=== PATIENT | female | born 1975 | race Caucasian/White ===

== ENCOUNTER → 2018-07-21 | Outpatient (REF) | payer OTHER | LOC: M LAB REF 17:28 | DX: Z34.82 Encounter for supervision of other normal pregnancy, second trimester (principal) ==

== ENCOUNTER → 2018-08-09 | Outpatient (CLI) | payer OTHER | LOC: M RAD 09:23 | DX: Z34.82 Encounter for supervision of other normal pregnancy, second trimester (principal); Z36.89 Encounter for other specified antenatal screening; Z3A.19 19 weeks gestation of pregnancy | CPT/HCPCS: 76811 ==

== ENCOUNTER → 2018-09-15 | Outpatient (CLI) | payer OTHER | LOC: M RAD 16:12 | DX: O09.512 Supervision of elderly primigravida, second trimester (principal); Z3A.25 25 weeks gestation of pregnancy | CPT/HCPCS: 76816 ==

== ENCOUNTER → 2018-09-30 | Outpatient (CLI) | payer OTHER ==
[2018-09-30 08:26] LABS: HEMATOCRIT 36.3 % (36.0-47.0); MEAN CORPUSCULAR HEMOGLOBIN 30.4 pg (27.0-33.0); MEAN CORPUSCULAR HGB CONC 33.1 g/dl (32.0-36.5); MEAN CORPUSCULAR VOLUME 91.9 fl (80.0-96.0); PLATELET COUNT, AUTOMATED 164 10^3/uL (150-450); RED BLOOD COUNT 3.95 10^6/uL (4.00-5.40); WHITE BLOOD COUNT 8.9 10^3/uL (4.0-10.0)
[2018-09-30 08:54] LABS: FREE T4 1.04 NG/DL (0.76-1.46); THYROID STIMULATING HORMONE 4.05 uIU/ML (0.358-3.740)
[2018-09-30 09:35] LABS: HEMOGLOBIN A1c 5.2 %
== END ==
LOC: M LAB 07:52
PROVIDERS: ATTEND Obstetrics & Gynecology
DX: O24.312 Unspecified pre-existing diabetes mellitus in pregnancy, second trimester (principal); Z3A.00 Weeks of gestation of pregnancy not specified
CPT/HCPCS: 36415; 83036; 84439; 84443; 85027; 86850; 86900; 86901; J2790

== ENCOUNTER → 2018-12-01 | Outpatient (REF) | payer OTHER | LOC: M LAB REF 13:25 | PROVIDERS: ATTEND Specialist | DX: O09.513 Supervision of elderly primigravida, third trimester (principal); Z3A.00 Weeks of gestation of pregnancy not specified ==

== ENCOUNTER 2018-12-13 11:27 | Outpatient (CLI) | payer BC, OTHER ==
[~2018-12-13] VITALS: Ht 157.5 cm; Wt 106.0 kg
[2018-12-13] MEDS ORDERED: LABE20TAB PO (11:53)
[2018-12-13] MEDS ORDERED: LEVO200T4 PO (11:53)
[2018-12-13] MEDS ORDERED: PRENTAB9 PO (11:53)
[2018-12-13] MEDS ORDERED: ASPI81TA85 PO (11:53)
[2018-12-13 11:57] VITALS: BP 131/80
--- NOTE | 2018-12-13 22:16 | IPNPDOC ---
Text Note Date of Service The patient was seen on 12/13/18. NOTE Patient presents for an ECV due to breech presentation. She is 37+ weeks gestation with an JASON of 01/01/19 based off of IVF dates. An ultrasound was done when patient arrived to room and she was found to have a baby in cephalic presentation. Category I NST obtained. VS were stable. Patient discharged to home with and is to follow-up this week or next week for her antepartum visits. Dr. Morse was present and did ultrasound at the bedside. VS,Fishbone, I+O VS, Fishbone, I+O Vital Signs Date Time Temp Pulse Resp B/P (MAP) Pulse Ox O2 Delivery O2 Flow Rate FiO2 12/13/18 11:57 99.0 97 18 131/80 (97) BENSON POLANCO CNM Dec 13, 2018 22:15
== END 2018-12-13 12:21 | disposition home or self-care (01) ==
LOC: M LDO 11:27
PROVIDERS: ATTEND Advanced Practice Midwife
DX: O26.893 Other specified pregnancy related conditions, third trimester (principal); Z3A.37 37 weeks gestation of pregnancy
CPT/HCPCS: 59025; 59412; G0378; G0463

== ENCOUNTER 2018-12-19 08:49 | Inpatient (IN) | payer BC, OTHER ==
[2018-12-19] VITALS (10 sets, daily range): BP systolic 138–176; BP diastolic 83–95
[~2018-12-19] VITALS: Ht 157.5 cm; Wt 106.7 kg
[~2018-12-19 08:49] MED LIST: ASPI81TA85 PO; LABE20TAB PO; LEVO200T4 PO; PRENTAB9 PO
[2018-12-19] MEDS ORDERED: FOLI400T PO (09:06)
[2018-12-19] MEDS: miSOPROStol 50 MCG 1/2 TAB (S0191) SL SCH ×3 (10:07→18:27)
[2018-12-19 10:29] LABS: HEMOGLOBIN 13.5 g/dl (12.0-15.5); MEAN CORPUSCULAR HEMOGLOBIN 30.5 pg (27.0-33.0); MEAN CORPUSCULAR HGB CONC 33.8 g/dl (32.0-36.5); MEAN CORPUSCULAR VOLUME 90.5 fl (80.0-96.0); PLATELET COUNT, AUTOMATED 144 10^3/uL (150-450); RED BLOOD COUNT 4.42 10^6/uL (4.00-5.40); WHITE BLOOD COUNT 9.3 10^3/uL (4.0-10.0)
--- NOTE | 2018-12-19 10:58 | HPE ---
DATE OF ADMISSION: 12/19/2018 A 43-year-old 1, para 0 female at 38-1/7 weeks gestation by last menstrual period (LMP) consistent with a 6-week ultrasound, estimated date of confinement (EDC) of 01/01/2019, presents for labor induction. The indication for induction less than 39 weeks is type 2 diabetes requiring insulin. She denies contractions or vaginal bleeding. There is good movement. COURSE: The patient initiated care at 13 weeks gestation on 06/29/2018. She conceived through reproductive assistance from [employer] She did not check glucose levels regularly in early and once she started checking, revealed poor control so she was started on insulin 17-18 weeks gestation. Initial hemoglobin A1c was 5.2. Baby had been breech at one point; however, spontaneously inverted when she showed up for attempted external cephalic version. MEDICAL HISTORY: 1. Polycystic ovary syndrome (PCOS). 2. Diabetes. 3. Hypertension. 4. Hypothyroidism. SURGICAL HISTORY: 1. [place] teeth removal. 2. Carpal tunnel syndrome surgery. ALLERGIES: SULFA. SOCIAL HISTORY: The patient is . She lives in [place]. She denies cigarettes, alcohol, or drug use. FAMILY HISTORY: Noncontributory. PHYSICAL EXAMINATION: Blood pressure 132/80, weight 239, pulse 84. She is in no apparent distress. Head and neck exam: Normal. Lungs: Clear. Heart: Regular rate and rhythm. Abdomen: Nontender, gravid. heart tones: Category 1. Sterile Vaginal Exam: Fingertip, 50%, -2, posterior vertex, moderate. Contractions: Irregular. Extremities: Nontender. LABS: Blood type A negative, Rubella immune, RPR nonreactive. Hepatitis B and C negative. HIV negative. GBS negative 12/01/2018. ASSESSMENT: A 43-year-old 1 at 38-1/7 weeks gestation with type 2 diabetes, on insulin, presents for labor induction. The patient was admitted on 12/19/2018. Risks of induction were discussed.
[2018-12-19 16:41] LABS: GLUCOSE,RANDOM 122 MG/DL (LESS THAN 200)
[2018-12-19] MEDS ORDERED: LABETALOL 200 MG TAB PO SCH (21:00)
[2018-12-19] MEDS: LABETALOL 200 MG TAB PO SCH (21:36)
[2018-12-19] MEDS: LR 1,000 ML IV SCH (21:54)
--- NOTE | 2018-12-19 21:57 | NUR ---
Progress note S: Feels cramps only O: BP139/92 NAD Abd: NT, gravid FHt: Cat. I toco: irreg cx: 1 cm/50%/-3 A/P 43 yo at 38 1/7 weeks with type II diabetes on insulin, labor induction Pt received 3 doses Misoprostol Intracervical Cook's Cath placed Plan to start Pitocin Pt given evening dose of Labetalol Lencho Morse MD
[2018-12-19] MEDS ORDERED: OXYTOCIN DRIP 30 UNITS in APPROPRIATE DILUENT 1 EA IV SCH (22:00)
[2018-12-20] VITALS (60 sets, daily range): BP systolic 112–166; BP diastolic 56–91
[2018-12-20] MEDS ORDERED: FENTANYL 2MCG/ML ROPIVACAINE 0.2% IN 0.9% NACL 100ML IVBAG As Ordered ONE (03:40)
[2018-12-20] MEDS ORDERED: NALOXONE INJ 0.4 MG/1 ML VIAL (J2310) IV PRN (04:55)
[2018-12-20] MEDS ORDERED: EPIDURAL/PCA KEYS XX PRN (04:55)
[2018-12-20] MEDS ORDERED: EPIDURAL COMMENT XX SCH (04:55)
[2018-12-20] MEDS ORDERED: ePHEDrine SULFATE 25 MG/5 ML(5MG/ML) SYRINGE IV PRN (04:55)
[2018-12-20] MEDS ORDERED: REFRIGERATOR IV KEYS XX PRN (04:55)
[2018-12-20] MEDS ORDERED: LACTATED RINGER'S 1000 ML IV PRN (04:55)
[2018-12-20] MEDS ORDERED: diphenhydrAMINE INJ 50MG/ML VIAL (J1200) IV PRN (04:55)
[2018-12-20] MEDS: FENTANYL/ROPIVACAINE/NACL BAG 100 ML EPIDURAL SCH ×2 (04:55→13:20)
[2018-12-20] MEDS ORDERED: ONDANSETRON 4MG/2ML VIAL (J2405) IV PRN ×3 (04:55→21:15)
[2018-12-20] MEDS: LR 1,000 ML IV SCH ×4 (05:54→21:26)
[2018-12-20] MEDS: LABETALOL 200 MG TAB PO SCH ×2 (08:10→21:00)
--- NOTE | 2018-12-20 14:21 | IPNPDOC ---
Obstetrical Progress Note Date of Service Dec 20, 2018 Subjective Patient reports feeling some cramping on her left side. Objective Vital Signs Date Time Temp Pulse Resp B/P (MAP) Pulse Ox O2 Delivery O2 Flow Rate FiO2 12/20/18 10:30 98.4 86 18 134/66 (88) Assessment Heart Rate (FHR): 120 Variability: Moderate Accelerations: Positive Decelerations: None Heart Rate Tracing: Category I Tocometer Contractions: Yes Frequency: regular Sterile Vaginal Examination Dilation: 4 cm Effacement (%): 90% Station: -2 Cervical Consistency: Medium Cervical Position: Anterior Postion/Presentation: Cephalic presentation Assessment and Plan Age: 43 : 3 Term: 0 Pre-term: 0 Abortions: 2 Livin Weeks & Days 38.2 Status: Reassuring Group B Streptococcus: Negative Additional Comments Pitocin is at 18 mu/min. IUPC shows adequate contraction pattern with adequate MVUs. Patient educated about anesthesia button for epidural bolus. She reports sweating and feeling warm. Temperate is 98.5 orally and blood sugar is 82. BENSON POLANCO CNM Dec 20, 2018 14:20
--- NOTE | 2018-12-20 17:47 | IPNPDOC ---
Obstetrical Progress Note Date of Service Dec 20, 2018 Subjective Patient reports she is comfortable with her epidural. She denies feeling any pressure. Objective Vital Signs Date Time Temp Pulse Resp B/P (MAP) Pulse Ox O2 Delivery O2 Flow Rate FiO2 12/20/18 10:30 98.4 86 18 134/66 (88) Assessment Heart Rate (FHR): 120 Variability: Moderate Accelerations: Positive Decelerations: None Heart Rate Tracing: Category I Tocometer Contractions: Yes Frequency: regular, every 2-2 min. Sterile Vaginal Examination Dilation: 4 cm Effacement (%): 90% Station: -2 Cervical Consistency: Soft Cervical Position: Anterior Postion/Presentation: Cephalic presentation Assessment and Plan Age: 43 : 3 Term: 0 Pre-term: 0 Abortions: 2 Livin Weeks & Days 38.2 Status: Reassuring Group B Streptococcus: Negative Anticipate: Section Additional Comments Pitocin at 18 mu/min. Reviewed with patient that her cervix hasn't changed more than half a cm in 8 hours. Reviewed recommendation of with patient due to failure to progress. Dr. Alicea notified of minimal change in 8 hours. BENSON POLANCO CNM Dec 20, 2018 17:47
[2018-12-20] MEDS ORDERED: BICITRA 30ML SOLN UDC PO ONE (18:30)
[2018-12-20 18:48] LABS: HEMOGLOBIN 13.2 g/dl (12.0-15.5); MEAN CORPUSCULAR HEMOGLOBIN 30.8 pg (27.0-33.0); MEAN CORPUSCULAR HGB CONC 33.8 g/dl (32.0-36.5); MEAN CORPUSCULAR VOLUME 90.9 fl (80.0-96.0); PLATELET COUNT, AUTOMATED 146 10^3/uL (150-450); RED BLOOD COUNT 4.29 10^6/uL (4.00-5.40); WHITE BLOOD COUNT 13.3 10^3/uL (4.0-10.0)
[2018-12-20] MEDS ORDERED: KETOROLAC 60 MG/2 ML VIAL (J1885) As Ordered ONE (18:56)
[2018-12-20] MEDS ORDERED: OXYTOCIN INJ 10 UNITS/ML VIAL (J2590) As Ordered ONE (18:56)
[2018-12-20] MEDS ORDERED: ONDANSETRON 4MG/2ML VIAL (J2405) As Ordered ONE ×2 (18:56→20:50)
[2018-12-20] MEDS ORDERED: LIDOCAINE PRES-FREE 2% 10ML AMP As Ordered ONE (19:02)
[2018-12-20] MEDS ORDERED: MIDAZOLAM INJ 2 MG/2 ML VIAL (J2250) As Ordered ONE (19:57)
[2018-12-20] MEDS ORDERED: fentaNYL 100 MCG/2 ML INJECTION (J3010) As Ordered ONE (20:18)
[2018-12-20] MEDS ORDERED: MORPHINE PRES-FREE INJ 10 MG/10 ML VIAL (J2274) As Ordered ONE (20:24)
[2018-12-20] MEDS ORDERED: OXYTOCIN DRIP 30 UNITS in APPROPRIATE DILUENT 1 EA IV SCH (20:47)
[2018-12-20] MEDS ORDERED: METOCLOPRAMIDE INJ 10MG/2ML VIAL (J2765) As Ordered ONE (20:50)
[2018-12-20] MEDS ORDERED: MOM 30ML SUSPENSION UDC PO PRN (21:00)
[2018-12-20] MEDS ORDERED: PERCOCET 5MG/325MG TAB PO PRN (21:00)
[2018-12-20] MEDS ORDERED: MEASLES,MUMPS,RUBELLA VACCINE INJ (MMR-II) (90707) SC SCH (21:00)
[2018-12-20] MEDS ORDERED: RHOGAM 300 MCG (1500 IU) INJ (J2790) IM SCH (21:00)
[2018-12-20] MEDS ORDERED: fentaNYL 100 MCG/2 ML INJECTION (J3010) IV PRN (21:15)
[2018-12-20] MEDS ORDERED: OXYTOCIN 30 UNITS IN 0.9% NaCl 500ML IV BAG (J2590) As Ordered ONE (21:19)
[2018-12-20 21:25] LABS: CORD GAS HCO3 V 20.6 MEQ/L; CORD GAS O2 SAT V 72.2 %; CORD GAS PCO2 V 40.7 mmHg; CORD GAS PH V 7.323 UNITS; CORD GAS PO2 V 31.8 mmHg; CORD GAS SBC V 19.7 MEQ/L; CORD GAS TCO2 V 21.9 MEQ/L
[2018-12-20 21:28] LABS: CORD GAS ABE A -2.9; CORD GAS HCO3 A 25.5 MEQ/L; CORD GAS O2 SAT A 41.7 %; CORD GAS PCO2 A 57.4 mmHg; CORD GAS PH A 7.265 UNITS; CORD GAS PO2 A 20.4 mmHg; CORD GAS SBC A 20.5 MEQ/L; CORD GAS TCO2 A 27.2 MEQ/L
[2018-12-20] MEDS: DOCUSATE SODIUM 100 MG CAP PO SCH (23:00)
[2018-12-21] VITALS (9 sets, daily range): BP systolic 109–144; BP diastolic 56–76
[2018-12-21] MEDS: KETOROLAC 30 MG/ML VIAL (J1885) IV SCH ×3 (02:03→13:09)
[2018-12-21] MEDS: LR 1,000 ML IV SCH ×3 (02:10→20:47)
--- NOTE | 2018-12-21 07:20 | RO ---
DATE OF PROCEDURE: 12/20/2018 PREOPERATIVE DIAGNOSIS: Arrest of dilation. POSTOPERATIVE DIAGNOSIS: Arrest of dilation. PROCEDURE PERFORMED: Primary lower transverse section. SURGEON: Dr. Shanique Alicea ECOLOGIST: Carla Guzman CNM. ANESTHESIA: Epidural. ESTIMATED BLOOD LOSS: 700 IV FLUIDS: 1400 mL lactated Ringer's solution. URINE OUTPUT: 100 mL PREOPERATIVE ANTIBIOTICS: 2 grams of Ancef IV. OPERATIVE FINDINGS: Live born male , Apgars 7 and 9, weight was 3340 grams or 7 pounds 6 ounces. SPECIMENS: Cord blood and cord gases. DESCRIPTION OF OPERATION: After informed consent was obtained and written consent was reviewed, the patient was brought to the operating room where she was placed in supine position with a left lateral tilt. She previously had a Marquez catheter placed set to gravity. She was then prepped and draped in normal sterile fashion. Time-out in the operating room was then performed identifying the patient, procedure to be performed as well as drug allergies. Anesthesia was tested and deemed to be adequate. A Pfannenstiel incision was then made along the previous skin incision and this was carried down to the underlying rectus fascia. The fascia was scored and this incision was extended bilaterally. The fascia was then dissected off the underlying rectus muscles both superiorly and inferiorly. The rectus muscles were then in the midline. The peritoneum was then entered sharply. The bladder blade was then placed to retract back the bladder. A curvilinear surgeon was then made a lower uterine segment. This incision was extended. I made an attempt to delivered this head through this incision which was unsuccessful. A vacuum was placed with poor seal. A second vacuum was requested with a better seal and the head was brought to the level of incision atraumatically and this was followed by delivery of shoulders and corpus. Suction was released, the cord was clamped times two and was cut and was taken over the warmer with good cry. Cord gases and blood was obtained. Placenta was then delivered grossly intact. The uterus was then exteriorized and cleared of all clots and debris. The uterine incision was then closed in two layers using 0 Vicryl first in a running locking fashion followed by a second layer for imbrication in a running nonlocking fashion. The abdomen was then suctioned. The uterus was returned to the patient's abdomen was re-inspected and noted to be hemostatic. There was an attempts re-approximate the anterior peritoneum which was unsuccessful secondary to poor tissue approximation and there was some bleeding from the rectus muscles, which was cauterized with a Bovie. Next, the fascia was then reapproximated with 0 Vicryl in a running nonlocking fashion. Subcutaneous tissue was then irrigated and suctioned. The subcutaneous tissues were re-approximated #3-0 Vicryl. Several subdermal stitches placed with #3-0 Vicryl and the skin was closed with #4-0 Monocryl in subcuticular fashion. Incision was then cleaned and dried and was dressed. The patient was then taken to recovery in stable condition. Counts correct times. Carla Guzman, my topographical field assistant played an essential role to the surgery. She assisted with tissue identification and retraction, delivery of the as well as wound closure. NITIN
[2018-12-21 07:24] LABS: MEAN CORPUSCULAR HEMOGLOBIN 30.9 pg (27.0-33.0); MEAN CORPUSCULAR HGB CONC 33.8 g/dl (32.0-36.5); MEAN CORPUSCULAR VOLUME 91.4 fl (80.0-96.0); PLATELET COUNT, AUTOMATED 147 10^3/uL (150-450); WHITE BLOOD COUNT 16.4 10^3/uL (4.0-10.0)
[2018-12-21 07:34] LABS: HEMOGLOBIN 10.8 g/dl (12.0-15.5)
[2018-12-21] MEDS ORDERED: diphenhydrAMINE INJ 50MG/ML VIAL (J1200) IV PRN (08:30)
[2018-12-21] MEDS: LABETALOL 200 MG TAB PO SCH ×2 (09:00→22:20)
[2018-12-21] MEDS ORDERED: ADACEL/BOOSTRIX VACCINE (DIPHTH/PERTUSS/ACELL/TETANUS)0.5ML SYR (90715) IM ONE (09:00)
[2018-12-21] MEDS: LEVOTHYROXINE 100MCG TABLET (0.1MG) PO SCH (09:38)
[2018-12-21] MEDS: DOCUSATE SODIUM 100 MG CAP PO SCH ×2 (09:39→22:19)
[2018-12-21] MEDS: PRENATAL VITAMINS CHEWABLE TABLET PO SCH (09:39)
--- NOTE | 2018-12-21 11:16 | NUR ---
PPD#1 S: Doing well w/o complaints. + ambulation and pain well controlled. O: vss, AF gen: well appearing abd: soft, appropriately tender incision: dressed ext: neg calf tenderness A/P: PPD#1 s/p 1ltcs- recovering in stable condition -continue routine postop care Shanique Alicea MD
[2018-12-21] MEDS: PERCOCET 5MG/325MG TAB PO PRN (18:21)
[2018-12-21] MEDS: IBUPROFEN 800 MG TAB PO SCH (22:19)
[2018-12-22 02:45] VITALS: BP 109/61
[2018-12-22] MEDS: PERCOCET 5MG/325MG TAB PO PRN ×2 (03:14→22:53)
[2018-12-22] MEDS: LEVOTHYROXINE 100MCG TABLET (0.1MG) PO SCH (05:08)
[2018-12-22] MEDS: IBUPROFEN 800 MG TAB PO SCH ×3 (05:09→21:10)
[2018-12-22 06:41] VITALS: BP 120/58
--- NOTE | 2018-12-22 08:00 | NUR ---
PPD#2 S: Doing well w/o complaints. + ambulation and pain moderately controlled. O: vss, AF gen: well appearing abd: soft, appropriately tender incision: dressed ext: neg calf tenderness A/P: PPD#2 s/p 1ltcs- recovering in stable condition -continue routine postop care -d/c plans for tomorrow Shanique Alicea MD
[2018-12-22] MEDS ORDERED: PERCOCET PO (08:02)
[2018-12-22] MEDS ORDERED: IBUP1TAB7 PO (08:04)
[2018-12-22] MEDS: PRENATAL VITAMINS CHEWABLE TABLET PO SCH (08:51)
[2018-12-22] MEDS: LABETALOL 200 MG TAB PO SCH ×2 (08:51→21:12)
[2018-12-22] MEDS: DOCUSATE SODIUM 100 MG CAP PO SCH ×2 (08:51→21:10)
[2018-12-22 18:00] VITALS: BP 127/61
[2018-12-22 21:15] VITALS: BP 165/70
[2018-12-22 22:45] VITALS: BP 125/68
[2018-12-23] MEDS: IBUPROFEN 800 MG TAB PO SCH ×2 (05:41→13:32)
[2018-12-23] MEDS: LEVOTHYROXINE 100MCG TABLET (0.1MG) PO SCH (05:41)
[2018-12-23 06:48] VITALS: BP 118/58
--- NOTE | 2018-12-23 07:46 | DSES ---
DATE OF ADMISSION: 12/19/2018 DATE OF DISCHARGE: 12/23/2018 DISCHARGE DIAGNOSIS: Primary section postop day #3 stable condition. SURGEON: Dr. Shanique Alicea, SAFETY PHYSICIAN: Clotilde Guzman PA-C. HISTORY: Amy is a 43-year-old 1, para 1-0-0-1 now who was admitted to labor and delivery for induction of labor. She did undergo a primary section due to arrest of dilation. The surgery was uncomplicated. Estimated blood loss 700 mL. She delivered a live male infant weighing 3340 grams, 7 pounds 6 ounces, 7 and 9. Her postoperative course has been rather uncomplicated. She has been out of bed for self care, win care, and visiting her in than intensive care unit (NICU). She has had her pain well controlled with by mouth pain medications. She is tolerating a regular diet and clear fluids. She is voiding without difficulty, passing flatus. OBJECTIVE: Temperature 98, pulse 84, respirations 18, BP 118/58. Preop CBC hemoglobin 13.5, hematocrit 40, platelet 144. Postoperative CBC hemoglobin 10.8, hematocrit 32, platelet 147. Breasts are soft and nontender and nipple intact. Abdomen: Fundus firm at umbilicus. Dressing is dry and intact. There is no drainage noted. Her perineum is intact. Lochia rubra scant. PLAN: Discharge the patient home. She is to follow up at [facility] for a 2-week incision check, and an 8-week visit. Prescriptions have been E-prescribed to her pharmacy for her for Percocet and ibuprofen. I did review discharge instructions that include breast care, incision care, win care, pelvic rest, activity and lifting restrictions, danger signs to report and access to her provider. The patient is requesting border status at this time as her is in the intensive care unit. NITIN
[2018-12-23] MEDS ORDERED: LABE10TAB PO (08:28)
[2018-12-23 09:38] VITALS: BP 154/80
[2018-12-23] MEDS: DOCUSATE SODIUM 100 MG CAP PO SCH (09:38)
[2018-12-23] MEDS: PRENATAL VITAMINS CHEWABLE TABLET PO SCH (09:38)
[2018-12-23] MEDS: LABETALOL 200 MG TAB PO SCH (09:38)
[2018-12-23] MEDS: PERCOCET 5MG/325MG TAB PO PRN (11:11)
== END 2018-12-23 14:44 | disposition home or self-care (01) | DRG 540 ==
LOC: M LDI 08:49 → M OBS 12-20 22:30
PROVIDERS: ADMIT Specialist; ATTEND Obstetrics & Gynecology
PROC: 3E0P7GC Introduction of Other Therapeutic Substance into Female Reproductive, Via Natural or Artificial Opening (ICD-10-PCS; 2018-12-19)
PROC: 10D00Z1 Extraction of Products of Conception, Low, Open Approach (ICD-10-PCS; principal; 2018-12-20 19:22)
DX: O24.12 Pre-existing type 2 diabetes mellitus, in childbirth (principal); E11.9 Type 2 diabetes mellitus without complications; Z79.4 Long term (current) use of insulin; O10.02 Pre-existing essential hypertension complicating childbirth; O99.284 Endocrine, nutritional and metabolic diseases complicating childbirth; E03.9 Hypothyroidism, unspecified; O62.0 Primary inadequate contractions; Z37.0 Single live birth; Z3A.38 38 weeks gestation of pregnancy

== ENCOUNTER → 2020-10-10 | Outpatient (CLI) | payer BC ==
[~2020-10-10] MED LIST changes: -ASPI81TA85 PO; +ASPI81TA86 PO; +FOLI400T PO; +IBUP1TAB7 PO; +LABE100T4 PO; +PERCOCET PO
--- NOTE | 2020-10-10 09:42 | REP ---
INDICATION: N83.201 RT OVARIAN CYST COMPARISON: None. TECHNIQUE: Transabdominal pelvic ultrasound followed by transvaginal examination for better evaluation of the endometrium and adnexa with color evaluation of the ovaries. FINDINGS: Bladder is unremarkable and measures 9.4 x 5.9 x 8.7 cm. Normal anteverted uterus measures 9.6 x 4.6 x 6.1 cm. The endometrial complex measures 12.3 mm thickness. Incidental subcentimeter nabothian cysts and Caesarean section scar noted. Right ovary measures 5.7 x 3.9 x 5.4 cm and includes 2.2 cm and 2.5 cm simple likely physiologic cysts. Left ovary measures 4.0 x 2.8 x 3.1 cm and includes 2.6 cm simple likely physiologic cyst. No pelvic fluid or adnexal mass lesion. IMPRESSION: 1. Relatively normal uterus with few nabothian cysts measuring up to 9 mm. 2. Bilateral simple appearing likely physiologic ovarian cysts. <Electronically signed by Pedro Gordon > 10/10/20 [id number]
== END ==
LOC: M WHC 08:15
PROVIDERS: ATTEND Obstetrics & Gynecology
DX: N83.201 Unspecified ovarian cyst, right side (principal)

== ENCOUNTER 2021-04-28 10:38 | Emergency (ER) | payer BC, OTHER ==
[~2021-04-28] VITALS: Ht 157.5 cm; Wt 96.9 kg
[~2021-04-28 10:38] MED LIST changes: -FOLI400T PO; +FOLI400T13 PO
[2021-04-28] MEDS ORDERED: CITA10TA5 (11:12)
[2021-04-28] MEDS ORDERED: LISI20TA33 (11:12)
[2021-04-28] MEDS ORDERED: ATOR1TAB19 (11:12)
[2021-04-28] MEDS ORDERED: ASPI81CH33 PO (11:12)
[2021-04-28] MEDS ORDERED: SYNJ1TAB15 (11:12)
[2021-04-28] MEDS ORDERED: EUTH25TA (11:12)
[2021-04-28] MEDS ORDERED: EUTH200T (11:12)
[2021-04-28] MEDS ORDERED: VITATAB74 PO (11:13)
[2021-04-28 11:55] LABS: BASO % 0.5 % (0.0-1.0); EOS # 0.3 10^3/uL (0.0-0.5); EOS % 3.4 % (0.0-3.0); HEMATOCRIT 27.8 % (36.0-47.0); HEMOGLOBIN 8.5 g/dl (12.0-15.5); LYMPH # 1.5 10^3/uL (1.5-5.0); LYMPH % 19.6 % (24.0-44.0); MEAN CORPUSCULAR HEMOGLOBIN 27.9 pg (27.0-33.0); MEAN CORPUSCULAR HGB CONC 30.6 g/dl (32.0-36.5); MEAN CORPUSCULAR VOLUME 91.1 fl (80.0-96.0); MONO # 0.4 10^3/uL (0.0-0.8); MONO % 5.5 % (2.0-8.0); NEUTROPHILS # 5.4 10^3/uL (1.5-8.5); NEUTROPHILS % 69.7 % (36.0-66.0); PLATELET COUNT, AUTOMATED 246 10^3/uL (150-450); RED BLOOD COUNT 3.05 10^6/uL (4.00-5.40); WHITE BLOOD COUNT 7.8 10^3/uL (4.0-10.0)
[2021-04-28 12:31] LABS: BLOOD UREA NITROGEN 11 MG/DL (7-18); CALCIUM LEVEL 8.3 MG/DL (8.5-10.1); CARBON DIOXIDE LEVEL 25 MEQ/L (21-32); CHLORIDE LEVEL 104 MEQ/L (98-107); CREATININE FOR GFR 0.81 MG/DL (0.55-1.30); GLOMERULAR FILTRATION RATE > 60.0 (>58); GLUCOSE, FASTING 147 MG/DL (70-100); POTASSIUM SERUM 4.3 MEQ/L (3.5-5.1); SODIUM LEVEL 135 MEQ/L (136-145); THYROID STIMULATING HORMONE 0.424 uIU/ML (0.358-3.740)
[2021-04-28] MEDS ORDERED: NS 1,000 ML IV ONE (13:50)
--- NOTE | 2021-04-28 14:00 | REP ---
INDICATION: vaginal bleeding. COMPARISON: 10/10/2020 TECHNIQUE: The transabdominal and endovaginal probes utilized along with color flow and Doppler interrogation of the ovaries. FINDINGS: Bladder only partially filled measuring 4.1 x 3.5 x 2.3 cm. The uterus is anteverted. It measures 9 x 4.9 x 6.5 cm. It has fairly smooth contours. A trace amount of fluid the endometrial cavity. There is some slight heterogeneity to the endometrial cavity without measurable discrete mass. I see no fluid in the cul-de-sac. An 8 mm nabothian cyst noted in the cervix The right ovary is 3.9 x 2.1 x 4.5 cm. Within it is a 2.3 x 2 x 1.6 cm follicle. Doppler tracing shows resistive index of 0.58 and no adjacent free fluid. The left ovary measures 3.3 x 3.4 x 3.1 cm. Within it is a 2.9 x 2.4 x 2.1 cm ovarian cyst. No adjacent free fluid. Doppler interrogation of the left ovary shows blood flow on color Doppler with resistive index 0.47. No adjacent fluid to the ovary or in the cul-de-sac. IMPRESSION: 1. 2.9 x 2.4 cm simple cyst left ovary without adjacent free fluid. 2. 2.3 x 2 cm dominant follicle in the right ovary (cyst defined at 2.5 cm). No adjacent fluid. 3. Thickening of the endometrial stripe up to 14 mm with some subtle heterogeneity but no discrete or measurable mass trace fluid in the endometrial cavity. Nabothian cyst in the cervix. No fluid in the cul-de-sac. <Electronically signed by Nicanor Whittington > 04/28/21 [id number]
[2021-04-28 15:15] VITALS: BP 110/54
[2021-04-28] MEDS ORDERED: FERR325T3 PO (15:18)
[2021-04-28] MEDS ORDERED: MEDR10TA PO (15:18)
--- NOTE | 2021-04-28 22:12 | ECGEPIP ---
[facility] - ED Test Date: 2021-04-28 Pat Name: JOEL LOZANO Department: Room: - Gender: Female Straight Truck Driver: GURINDER : 1975 Requested By: Charles Medina Order Number: [id number] Reading MD: Miri Segal Measurements Intervals [place] Rate: 105 P: 71 MA: 174 QRS: 47 QRSD: 72 T: 24 QT: 364 QTc: 481 Interpretive Statements Sinus tachycardia Low voltage QRS Septal infarct , age undetermined prolonged qtc No prior Electronically Signed on 04-28-2021 22:12:04 EDT by Miri Segal
== END 2021-04-28 15:31 | disposition home or self-care (01) ==
LOC: M ED 10:38
DX: N93.9 Abnormal uterine and vaginal bleeding, unspecified (principal); R42 Dizziness and giddiness; R00.0 Tachycardia, unspecified; N83.202 Unspecified ovarian cyst, left side; N88.8 Other specified noninflammatory disorders of cervix uteri; E11.9 Type 2 diabetes mellitus without complications; E78.5 Hyperlipidemia, unspecified; E03.9 Hypothyroidism, unspecified; Z79.82 Long term (current) use of aspirin; Z79.899 Other long term (current) drug therapy; Z79.890 Hormone replacement therapy; Z88.0 Allergy status to penicillin; Z88.6 Allergy status to analgesic agent